=== PATIENT | male | born 1955 | race Caucasian/White ===

== ENCOUNTER 2020-09-22 13:40 | Emergency (ER) | payer OTHER ==
[~2020-09-22] VITALS: Ht 185.4 cm; Wt 88.5 kg
[2020-09-22 13:48] VITALS: BP 177/123
[2020-09-22 14:55] LABS: HEMATOCRIT 34.5 % (42.0-52.0); HEMOGLOBIN 12.1 gm/dL (14.0-18.0); MCH 28.8 pg (26.0-34.0); MCHC 35.1 g/dL (28.0-37.0); MCV 82.1 fL (80.0-100.0); PLATELET COUNT 239 thou/uL (150-400); RBC 4.21 mil/uL (4.50-6.00); RDW 13.1 % (10.5-14.5); WBC 5.8 thou/uL (4.0-11.0)
[2020-09-22 15:17] LABS: ALBUMIN 3.5 g/dL (3.4-5.0); ANION GAP 10 mmol/L (7-16); BUN 25 mg/dL (7-18); CHLORIDE 95 mmol/L (98-107); CO2 30 mmol/L (21-32); CREATININE 1.7 mg/dL (0.7-1.3); GLUCOSE 349 mg/dL (74-106); POTASSIUM 3.3 mmol/L (3.5-5.1); SGOT 14 U/L (15-37); SGPT 21 U/L (30-65); SODIUM 135 mmol/L (136-145); TOTAL BILIRUBIN 0.7 mg/dL (0.2-1.0); TOTAL PROTEIN 8.7 g/dL (6.4-8.2); TROPONIN-I <0.06 ng/mL (<0.06)
[2020-09-22 15:34] LABS: ABSOLUTE NEUTROPHILS 3.7 thou/uL (1.4-8.2)
--- NOTE | 2020-09-22 16:54 | EKG ---
[address] [address] ELECTROCARDIOGRAM REPORT Name: ROCIO CARDENAS Room [facility]: [facility]ORTAnjum[id number] Admission: 09/22/20 Attend Phys: Discharge: Date of : 55 Report #: [id number] [facility] ED Test Date: 2020-09-22 Test Time: 14:21:03 Pat Name: ROCIO CARDENAS Department: Room: Gender: M Collection Specialist: merced : 1955 Requested By: Clary Concepcion Order Number: [id number] MD: Callum Carballo Measurements Intervals [place] Rate: 116 P: 68 ID: [id number] QRS: 48 QRSD: 87 T: 31 QT: 333 QTc: 463 Interpretive Statements Sinus tachycardia Probable left ventricular hypertrophy Anterior ST elevation, probably due to LVH Baseline wander in lead(s) V2,V4,V5 No previous ECG available for comparison Electronically Signed On 09-22-2020 16:54:09 CDT by Callum Carballo [email or web address] <ELECTRONICALLY SIGNED> By: Callum Carballo MD 09/22/20 1654 1421 1421 Callum Carballo MD /CHAKA
== END 2020-09-22 17:38 | disposition short-term general hospital, planned readmission (82) ==
LOC: ER 13:40
PROVIDERS: Nurse Practitioner Family
DX: S22.068A Other fracture of T7-T8 thoracic vertebra, initial encounter for closed fracture (principal); R73.9 Hyperglycemia, unspecified; E83.52 Hypercalcemia; N28.9 Disorder of kidney and ureter, unspecified; X50.0XXA Overexertion from strenuous movement or load, initial encounter; Y93.89 Activity, other specified; Y92.89 Other specified places as the place of occurrence of the external cause; Y99.8 Other external cause status